=== PATIENT | female | born 1945 | race Two or more races ===

== ENCOUNTER 2022-06-16 06:47 | Inpatient (IN) | payer OTHER ==
[~2022-06-16] VITALS: Ht 157.5 cm; Wt 97.5 kg
[~2022-06-16 06:47] MED LIST: ACET325T82 PO; ALBUAER3 IN; AMLO-483 PO; ATOR80TA PO; BUDE1AER6 IN; CLOP75TA28 PO; COEN50CA PO; DULO20CA PO; FURO1TAB33 PO; LOSA25TA38 PO; MAGN400T40 OR; METF-370 PO; METO25TA93 PO; NITR0.4S29 SL; NUTRPAK OR; PANT40TA2 PO; POTA-180 PO; TRAM50TA2 PO
[2022-06-16] MEDS ORDERED: ACETAMINOPHEN IV 1000 MG/100ML (10MG/ML) IV ONE (08:15)
[2022-06-16] MEDS ORDERED: PREGABALIN CAPSULE 75 MG CAP PO ONE (08:15)
[2022-06-16] MEDS ORDERED: CELECOXIB 100 MG CAP PO ONE (08:15)
[2022-06-16] MEDS ORDERED: ceFAZolin 1GM/50ML 100 ML IV ONE (08:17)
[2022-06-16] MEDS ORDERED: BUPIVACAINE W/ EPINEPH 0.5% INJ 50ML MDV IJ ONE (08:20)
[2022-06-16] MEDS ORDERED: TRANEXAMIC ACID 20 ML ONE (08:20)
[2022-06-16] MEDS ORDERED: VANCOMYCIN HCL 1000 MG VL ONE (08:22)
[2022-06-16] MEDS ORDERED: TETRACAINE 1% INJ 2 ML VIAL IJ ONE (08:23)
[2022-06-16] MEDS ORDERED: MORPHINE SULF PF 5 MG/10 ML VIAL ONE (08:24)
[2022-06-16] MEDS ORDERED: KETOROLAC TROMETH 30 MG/ML 1ML VIAL ONE (08:24)
[2022-06-16] MEDS ORDERED: fentaNYL CITRATE 100 MCG/2 ML VL ONE (09:51)
[2022-06-16] MEDS ORDERED: MIDAZOLAM HCL 2MG/2ML 2ml VIAL (1mg/ml) ONE (09:51)
[2022-06-16] MEDS ORDERED: DexAMETHasone SOD PHOS 10MG/1ML VIAL INJ ONE (10:25)
[2022-06-16] MEDS ORDERED: MEPERIDINE HCL (25 MG/ML) 1ML VIAL ONE (10:25)
[2022-06-16] MEDS ORDERED: PROPOFOL 10 MG/ML 20 ML IV ONE (10:25)
[2022-06-16] MEDS ORDERED: LABETALOL HCL 5 MG/ML 4ML SYRINGE IV PRN (10:45)
[2022-06-16] MEDS ORDERED: MIDAZOLAM HCL 2MG/2ML 2ml VIAL (1mg/ml) IV PRN (10:45)
[2022-06-16] MEDS ORDERED: MORPHINE SULFATE 4 MG/ML SYR/VIAL IV PRN (10:45)
[2022-06-16] MEDS ORDERED: ONDANSETRON HCL 4 MG/2 ML VIAL IV PRN ×2 (10:45→11:45)
[2022-06-16] MEDS ORDERED: ePHEDrine SULFATE 50 MG/ML AMP IV PRN (10:45)
[2022-06-16] MEDS ORDERED: MORPHINE SULFATE INJ 2 MG/ml SYRG IV PRN (11:45)
[2022-06-16] MEDS ORDERED: BISACODYL 5 MG EC TAB PO PRN (11:45)
[2022-06-16] MEDS: ceFAZolin 1GM/50ML 50 ML IV SCH ×3 (11:45→23:31)
[2022-06-16] MEDS ORDERED: NITROGLYCERIN 0.4 MG SL TAB SL PRN (11:45)
[2022-06-16] MEDS ORDERED: NITROGLYCERIN 0.4 MG SL TAB SL SCH (11:45)
[2022-06-16] MEDS: LACTATED RINGER'S 1,000 ML IV SCH ×2 (11:45→21:45)
[2022-06-16] MEDS ORDERED: ALBUTEROL SULF HFA 90MCG INH 200DOSE IN SCH (12:00)
[2022-06-16] MEDS ORDERED: ETOMIDATE (2MG/ML) 20ML VIAL IV ONE (12:12)
[2022-06-16] MEDS ORDERED: PHENYLEPHRINE HCL 10 MG/ML VL IV ONE (12:12)
[2022-06-16] MEDS ORDERED: SUCCINYLCHOLINE CHLORIDE 20 MG/ML 10ML VIAL IV ONE (12:12)
[2022-06-16] MEDS ORDERED: HYDROmorphone HCL 2 MG/ML VL/or syr ONE (12:24)
[2022-06-16] MEDS: HYDROmorphone HCL 2 MG/ML VL/or syr IV PRN ×3 (12:26→17:48)
[2022-06-16] MEDS: SODIUM CHLOR 0.9% PF (SALINE LOCK) 10ML VIAL/SYR IV SCH ×2 (14:00→21:39)
[2022-06-16 16:40] VITALS: BP 119/45
[2022-06-16] MEDS: ATORVASTATIN 20 MG TAB PO SCH (17:44)
[2022-06-16 18:01] VITALS: BP 119/45
[2022-06-16] MEDS: ACCU-CHEK COMFORT CURVE STRIP VI SCH ×2 (18:05→21:41)
[2022-06-16 20:00] VITALS: BP 99/51
[2022-06-16] MEDS: DOCUSATE SOD 100 MG CAP PO SCH (21:39)
[2022-06-16] MEDS: metFORMIN HYDROCHLORIDE 500 MG TAB PO SCH (21:39)
[2022-06-16 22:00] VITALS: BP 99/51
[2022-06-17] VITALS (8 sets, daily range): BP systolic 99–127; BP diastolic 51–82
[2022-06-17] MEDS ORDERED: ALBUTEROL SULF 2.5 MG/0.5ML(0.5%) NEB SOLN NEB PRN
[2022-06-17] MEDS: HYDROmorphone HCL 2 MG/ML VL/or syr IV PRN ×4 (03:04→22:00)
[2022-06-17] MEDS: SODIUM CHLOR 0.9% PF (SALINE LOCK) 10ML VIAL/SYR IV SCH ×3 (05:33→21:58)
[2022-06-17] MEDS: LOSARTAN POTASSIUM 25 MG TAB PO SCH (06:28)
[2022-06-17] MEDS: ACCU-CHEK COMFORT CURVE STRIP VI SCH ×4 (06:43→21:59)
[2022-06-17] MEDS: POTASSIUM CHL 20 Meq TABLET PO SCH (06:44)
[2022-06-17] MEDS: LACTATED RINGER'S 1,000 ML IV SCH ×2 (07:45→17:01)
[2022-06-17 08:08] LABS: Hematocrit 30.7 % (36.0-46.0); Hemoglobin 9.7 g/dL (12.2-16.2)
[2022-06-17 08:12] LABS: Albumin 3.3 g/dL (3.4-5.0); Calcium 8.9 mg/dL (8.5-10.1); Potassium 4.2 mmol/L (3.5-5.1)
[2022-06-17 08:15] LABS: BUN/Creatinine Ratio 27.9; Bilirubin, Total 0.6 mg/dL (0.2-1.0); Total Protein 6.8 g/dL (6.4-8.2)
[2022-06-17] MEDS: DOCUSATE SOD 100 MG CAP PO SCH ×2 (09:17→21:58)
[2022-06-17] MEDS: metFORMIN HYDROCHLORIDE 500 MG TAB PO SCH ×2 (09:17→21:59)
[2022-06-17] MEDS: FUROSEMIDE 20 MG TAB PO SCH (09:18)
[2022-06-17] MEDS: amLODIPine BESYLATE 5 MG TAB PO SCH (09:18)
[2022-06-17] MEDS: PANTOPRAZOLE 40 MG TAB PO SCH (09:18)
[2022-06-17] MEDS: CLOPIDOGREL BISULFATE 75 MG TAB PO SCH (09:19)
[2022-06-17] MEDS: METOPROLOL SUCCINATE XL 50 MG TAB PO SCH (09:19)
[2022-06-17] MEDS: DULoxetine HCL 30 MG CAP PO SCH ×2 (10:29→21:59)
[2022-06-17] MEDS: OXYCODONE W/ ACETAMINOPHEN 5/325MG TABLET PO PRN ×3 (10:29→20:24)
[2022-06-17] MEDS: ATORVASTATIN 20 MG TAB PO SCH (17:02)
[2022-06-18] MEDS: OXYCODONE W/ ACETAMINOPHEN 5/325MG TABLET PO PRN ×3 (00:33→22:32)
[2022-06-18] MEDS: LACTATED RINGER'S 1,000 ML IV SCH ×2 (04:39→19:29)
[2022-06-18 05:00] VITALS: BP 113/53
[2022-06-18] MEDS: ACCU-CHEK COMFORT CURVE STRIP VI SCH ×4 (05:51→21:30)
[2022-06-18] MEDS: LOSARTAN POTASSIUM 25 MG TAB PO SCH (05:51)
[2022-06-18] MEDS: POTASSIUM CHL 20 Meq TABLET PO SCH (05:51)
[2022-06-18] MEDS: SODIUM CHLOR 0.9% PF (SALINE LOCK) 10ML VIAL/SYR IV SCH ×3 (05:52→21:33)
[2022-06-18 08:00] VITALS: BP 115/60
[2022-06-18 08:22] LABS: Hemoglobin 9.5 g/dL (12.2-16.2)
[2022-06-18] MEDS: HYDROmorphone HCL 2 MG/ML VL/or syr IV PRN (08:49)
[2022-06-18 09:00] VITALS: BP 115/60
[2022-06-18] MEDS: metFORMIN HYDROCHLORIDE 500 MG TAB PO SCH ×2 (09:34→21:27)
[2022-06-18] MEDS: PANTOPRAZOLE 40 MG TAB PO SCH (09:34)
[2022-06-18] MEDS: DOCUSATE SOD 100 MG CAP PO SCH ×2 (09:34→21:27)
[2022-06-18] MEDS: CLOPIDOGREL BISULFATE 75 MG TAB PO SCH (09:34)
[2022-06-18] MEDS: DULoxetine HCL 30 MG CAP PO SCH ×2 (09:34→21:27)
[2022-06-18] MEDS: METOPROLOL SUCCINATE XL 50 MG TAB PO SCH (09:35)
[2022-06-18] MEDS: amLODIPine BESYLATE 5 MG TAB PO SCH (09:36)
[2022-06-18] MEDS: FUROSEMIDE 20 MG TAB PO SCH (09:37)
[2022-06-18 13:00] VITALS: BP 110/62
[2022-06-18 16:36] VITALS: BP 149/89
[2022-06-18] MEDS: ATORVASTATIN 20 MG TAB PO SCH (19:36)
[2022-06-18 22:00] VITALS: BP 93/64
[2022-06-19 05:00] VITALS: BP 126/101
[2022-06-19 05:21] LABS: Hemoglobin 8.3 g/dL (12.2-16.2)
[2022-06-19 05:26] LABS: Hematocrit 25.6 % (36.0-46.0)
[2022-06-19] MEDS: LACTATED RINGER'S 1,000 ML IV SCH (05:39)
[2022-06-19] MEDS: SODIUM CHLOR 0.9% PF (SALINE LOCK) 10ML VIAL/SYR IV SCH ×3 (06:05→21:58)
[2022-06-19] MEDS: POTASSIUM CHL 20 Meq TABLET PO SCH (06:10)
[2022-06-19] MEDS: OXYCODONE W/ ACETAMINOPHEN 5/325MG TABLET PO PRN ×3 (06:10→18:03)
[2022-06-19] MEDS: LOSARTAN POTASSIUM 25 MG TAB PO SCH (06:11)
[2022-06-19] MEDS: ACCU-CHEK COMFORT CURVE STRIP VI SCH ×4 (06:11→21:59)
[2022-06-19 08:53] VITALS: BP 109/58
[2022-06-19] MEDS: DOCUSATE SOD 100 MG CAP PO SCH ×2 (09:08→21:58)
[2022-06-19] MEDS: DULoxetine HCL 30 MG CAP PO SCH ×2 (09:08→21:58)
[2022-06-19] MEDS: PANTOPRAZOLE 40 MG TAB PO SCH (09:08)
[2022-06-19] MEDS: CLOPIDOGREL BISULFATE 75 MG TAB PO SCH (09:08)
[2022-06-19] MEDS: amLODIPine BESYLATE 5 MG TAB PO SCH (09:10)
[2022-06-19] MEDS: metFORMIN HYDROCHLORIDE 500 MG TAB PO SCH ×2 (09:12→21:58)
[2022-06-19 12:49] VITALS: BP 117/51
[2022-06-19] MEDS: METOPROLOL SUCCINATE XL 50 MG TAB PO SCH (12:53)
[2022-06-19] MEDS: FUROSEMIDE 20 MG TAB PO SCH (12:54)
[2022-06-19 16:57] VITALS: BP 105/49
[2022-06-19 17:21] VITALS: BP 117/64
[2022-06-19] MEDS: ATORVASTATIN 20 MG TAB PO SCH (18:13)
[2022-06-19 22:00] VITALS: BP 163/69
== END 2022-06-19 22:00 | DRG 470 ==
LOC: SUR 06:47 → TELE 11:39 → TELE-WESTW 16:14
PROVIDERS: ADMIT Orthopaedic Surgery Adult Reconstructive Orthopaedic Surgery; ATTEND Orthopaedic Surgery
PROC: 8E0YXBZ Computer Assisted Procedure of Lower Extremity (ICD-10-PCS; 2022-06-16)
PROC: 0SRD0J9 Replacement of Left Knee Joint with Synthetic Substitute, Cemented, Open Approach (ICD-10-PCS; principal; 2022-06-16 10:08)
DX: M17.12 Unilateral primary osteoarthritis, left knee (principal); M17.11 Unilateral primary osteoarthritis, right knee; E11.9 Type 2 diabetes mellitus without complications; E66.01 Morbid (severe) obesity due to excess calories; E78.5 Hyperlipidemia, unspecified; Z20.822 Contact with and (suspected) exposure to COVID-19; F32.A Depression, unspecified; I11.9 Hypertensive heart disease without heart failure; Z80.1 Family history of malignant neoplasm of trachea, bronchus and lung; Z82.49 Family history of ischemic heart disease and other diseases of the circulatory system; Z88.5 Allergy status to narcotic agent; Z68.35 Body mass index [BMI] 35.0-35.9, adult
CPT/HCPCS: 36415; 73562; 80053; 82962; 85014; 85018; 86850; 86900; 86901; 97110; 97116; 97163; 97530; C1713; G0378; J0131; J0330; J0690; J1100; J1885; J2250; J2704

== ENCOUNTER 2022-11-17 06:26 | Inpatient (IN) | payer OTHER ==
[~2022-11-17] VITALS: Ht 157.5 cm; Wt 94.5 kg
[~2022-11-17 06:26] MED LIST changes: +GABA300C PO
[2022-11-17] MEDS ORDERED: CELECOXIB 100 MG CAP ONE (06:56)
[2022-11-17] MEDS ORDERED: ACETAMINOPHEN IV 100 ML IV ONE (06:57)
[2022-11-17] MEDS ORDERED: ceFAZolin 1GM/50ML 100 ML IV ONE (06:57)
[2022-11-17] MEDS ORDERED: PREGABALIN CAPSULE 75 MG CAP ONE (06:57)
[2022-11-17] MEDS ORDERED: PREGABALIN CAPSULE 75 MG CAP PO ONE (07:00)
[2022-11-17] MEDS ORDERED: ACETAMINOPHEN IV 1000 MG/100ML (10MG/ML) IV ONE (07:00)
[2022-11-17] MEDS ORDERED: VANCOMYCIN HCL 1000 MG VL ONE (07:00)
[2022-11-17] MEDS ORDERED: CELECOXIB 100 MG CAP PO ONE (07:00)
[2022-11-17] MEDS ORDERED: TRANEXAMIC ACID 20 ML ONE (07:01)
[2022-11-17] MEDS ORDERED: KETOROLAC TROMETH 30 MG/ML 1ML VIAL ONE (07:02)
[2022-11-17] MEDS ORDERED: MORPHINE SULF PF 5 MG/10 ML VIAL ONE (07:02)
[2022-11-17] MEDS ORDERED: BUPIVACAINE 0.75% INJ 10ML MPV SDV IJ ONE (07:18)
[2022-11-17] MEDS ORDERED: HYDROmorphone HCL 2 MG/ML VL/or syr ONE (07:28)
[2022-11-17] MEDS ORDERED: MIDAZOLAM HCL 2MG/2ML 2ml VIAL (1mg/ml) ONE (07:28)
[2022-11-17] MEDS ORDERED: fentaNYL CITRATE 100 MCG/2 ML VL ONE (07:28)
[2022-11-17] MEDS ORDERED: PHENYLEPHRINE HCL 10 MG/ML VL ONE (07:29)
[2022-11-17] MEDS ORDERED: ePHEDrine SULFATE 50 MG/ML AMP ONE (07:29)
[2022-11-17] MEDS ORDERED: DexAMETHasone SOD PHOS 10MG/1ML VIAL INJ ONE (07:29)
[2022-11-17] MEDS ORDERED: ONDANSETRON HCL 4 MG/2 ML VIAL ONE ×2 (07:29→11:51)
[2022-11-17] MEDS ORDERED: ROCURONIUM 10MG/ML 10ML VIAL IV ONE (07:37)
[2022-11-17] MEDS ORDERED: SUGAMMADEX 200mg/2ml Vial (100MG/ML) IV ONE (07:42)
[2022-11-17] MEDS ORDERED: GLYCOPYRROLATE 0.2 MG/ML 1ML VIAL ONE (07:42)
[2022-11-17] MEDS ORDERED: ONDANSETRON HCL 4 MG/2 ML VIAL IV PRN ×2 (10:00→10:30)
[2022-11-17] MEDS ORDERED: HYDROcodone-ACET 5/325MG TAB PO PRN (10:00)
[2022-11-17] MEDS ORDERED: DEXTROSE (50%) 50ML SYRG IV PRN (10:00)
[2022-11-17] MEDS ORDERED: HYDROmorphone HCL 2 MG/ML VL/or syr IV PRN ×2 (10:00→10:30)
[2022-11-17] MEDS: FUROSEMIDE 20 MG TAB PO SCH (10:00)
[2022-11-17] MEDS ORDERED: NITROGLYCERIN 0.4 MG SL TAB SL SCH (10:00)
[2022-11-17] MEDS: DOCUSATE SOD 100 MG CAP PO SCH ×2 (10:00→21:04)
[2022-11-17] MEDS: PANTOPRAZOLE 40 MG TAB PO SCH (10:00)
[2022-11-17] MEDS ORDERED: MORPHINE SULFATE INJ 2 MG/ml SYRG IV PRN (10:00)
[2022-11-17] MEDS: LACTATED RINGER'S 1,000 ML IV SCH ×2 (10:00→20:00)
[2022-11-17] MEDS ORDERED: NITROGLYCERIN 0.4 MG SL TAB SL PRN (10:00)
[2022-11-17] MEDS: ceFAZolin 1GM/50ML 50 ML IV SCH ×3 (10:00→21:04)
[2022-11-17] MEDS ORDERED: ACCU-CHEK COMFORT CURVE STRIP VI ONE (10:30)
[2022-11-17] MEDS ORDERED: ALBUTEROL SULFATE 90 MCG MDI IN ONE (11:02)
[2022-11-17] MEDS ORDERED: ALBUTEROL SULF 2.5 MG/0.5ML(0.5%) NEB SOLN NEB ONE (11:15)
[2022-11-17] MEDS: ACCU-CHEK COMFORT CURVE STRIP VI SCH ×3 (11:30→21:39)
[2022-11-17] MEDS: InsuLIN REG 1unit/0.01ml Soln (100units/ml) SC SCH ×2 (11:30→17:15)
[2022-11-17] MEDS ORDERED: ACCU-CHEK COMFORT CURVE STRIP VI SCH (11:30)
[2022-11-17] MEDS ORDERED: BUPIVACAINE 0.5% P/F INJ 10 ML VIAL ONE (11:36)
[2022-11-17] MEDS ORDERED: ALBUTEROL MEDNEB 2.5 mg/3ml NEB ONE (11:45)
[2022-11-17] MEDS ORDERED: LIDOCAINE W/ EPINEPHRINE 2% INJ 20ML VIAL ONE (11:51)
[2022-11-17] MEDS ORDERED: EPINEPHrine HCL 1 MG/1 ML AMP ONE (11:51)
[2022-11-17] MEDS ORDERED: ALBUTEROL SULF HFA 90MCG INH 200DOSE IN SCH (12:00)
[2022-11-17] MEDS: HYDROmorphone HCL 2 MG/ML VL/or syr ONE ×2 (12:09→12:16)
[2022-11-17] MEDS ORDERED: BUPIVACAINE HCL 0.25% P/F 10 ML VIAL ONE (13:23)
[2022-11-17] MEDS ORDERED: InsuLIN REG 1unit/0.01ml Soln (100units/ml) ONE (17:12)
[2022-11-17 18:31] VITALS: BP 116/59
[2022-11-17] MEDS: GABAPENTIN 100 MG CAP PO SCH (21:04)
[2022-11-17 22:00] VITALS: BP 116/59
[2022-11-17] MEDS ORDERED: ATORVASTATIN 20 MG TAB PO SCH (22:00)
[2022-11-17] MEDS ORDERED: InsuLIN REG 1unit/0.01ml Soln (100units/ml) SC SCH (22:00)
[2022-11-18] MEDS: ceFAZolin 1GM/50ML 50 ML IV SCH ×2 (02:06→08:27)
[2022-11-18] MEDS: LACTATED RINGER'S 1,000 ML IV SCH ×2 (04:01→16:00)
[2022-11-18 04:51] VITALS: BP 113/51
[2022-11-18] MEDS: ACCU-CHEK COMFORT CURVE STRIP VI SCH ×3 (06:13→18:43)
[2022-11-18] MEDS: InsuLIN REG 1unit/0.01ml Soln (100units/ml) SC SCH ×3 (06:14→18:44)
[2022-11-18 06:40] LABS: Hemoglobin 9.1 g/dL (12.2-16.2)
[2022-11-18 06:42] LABS: Hematocrit 29.1 % (36.0-46.0)
[2022-11-18 06:54] LABS: Potassium 4.8 mmol/L (3.5-5.1)
[2022-11-18 07:00] LABS: Albumin 3.1 g/dL (3.4-5.0); BUN/Creatinine Ratio 23.9; Calcium 9.2 mg/dL (8.5-10.1)
[2022-11-18] MEDS ORDERED: POTASSIUM CHL 20 Meq TABLET PO SCH (07:00)
[2022-11-18] MEDS ORDERED: LOSARTAN POTASSIUM 25 MG TAB PO SCH (07:00)
[2022-11-18] MEDS ORDERED: DULoxetine HCL 30 MG CAP PO SCH (07:00)
[2022-11-18 07:05] LABS: Bilirubin, Total 0.4 mg/dL (0.2-1.0); Total Protein 6.1 g/dL (6.4-8.2)
[2022-11-18] MEDS ORDERED: CLOPIDOGREL BISULFATE 75 MG TAB PO SCH (08:00)
[2022-11-18 09:00] VITALS: BP 98/45
[2022-11-18] MEDS ORDERED: amLODIPine BESYLATE 5 MG TAB PO SCH (10:00)
[2022-11-18] MEDS ORDERED: METOPROLOL SUCCINATE XL 50 MG TAB PO SCH (10:00)
[2022-11-18] MEDS: FUROSEMIDE 20 MG TAB PO SCH (10:00)
[2022-11-18] MEDS: PANTOPRAZOLE 40 MG TAB PO SCH (10:16)
[2022-11-18] MEDS: DOCUSATE SOD 100 MG CAP PO SCH (10:16)
[2022-11-18 13:00] VITALS: BP 100/40
[2022-11-18 17:00] VITALS: BP 114/46
[2022-11-18 17:10] VITALS: BP 114/46
[2022-11-18] MEDS: GABAPENTIN 100 MG CAP PO SCH (19:04)
== END 2022-11-18 19:41 | DRG 470 ==
LOC: SUR 06:26 → TELE 10:04 → UNDOADMIN 10:04 → TELE-CENTR 18:22
PROVIDERS: ADMIT Orthopaedic Surgery Adult Reconstructive Orthopaedic Surgery; ATTEND Orthopaedic Surgery
PROC: 0SRC0J9 Replacement of Right Knee Joint with Synthetic Substitute, Cemented, Open Approach (ICD-10-PCS; principal; 2022-11-17 07:47)
DX: M17.11 Unilateral primary osteoarthritis, right knee (principal); E78.5 Hyperlipidemia, unspecified; E11.40 Type 2 diabetes mellitus with diabetic neuropathy, unspecified; K21.9 Gastro-esophageal reflux disease without esophagitis; I10 Essential (primary) hypertension; Z80.1 Family history of malignant neoplasm of trachea, bronchus and lung; Z82.49 Family history of ischemic heart disease and other diseases of the circulatory system; Z82.5 Family history of asthma and other chronic lower respiratory diseases; Z20.822 Contact with and (suspected) exposure to COVID-19
CPT/HCPCS: 36415; 73562; 80053; 82962; 85014; 85018; 86850; 86900; 86901; 87426; 94640; 97110; 97116; C1713; G0378; J0131; J0171; J0690; J1100; J1815; J1885; J2250; J2405; J3490